=== PATIENT | male | born 1980 | race Caucasian/White ===

== ENCOUNTER → 2019-06-30 | Outpatient (CLI) | payer OTHER ==
[~2019-06-30] MED LIST: TOBRADEX 0.1%-0.5 ML OPH
[2019-06-30 17:31] LABS: BASO % 0.7 % (0.0-1.0); EOS # 0.2 10*3/uL (0.0-0.4); HEMATOCRIT 44.4 % (42.0-52.0); HEMOGLOBIN 14.5 g/dl (14.0-18.0); LYMPH # 2.2 10*3/uL (1.3-4.4); MEAN CELL VOLUME 92.5 fl (80.0-94.0); MEAN CORPUSCULAR HGB 30.2 pg (27.0-31.0); MEAN CORPUSCULAR HGB CONC 32.7 g/dl (33.0-37.0); MEAN PLATELET VOLUME 10.7 fl (9.6-12.3); MONO # 0.4 10*3/uL (0.1-1.0); MONO % 6.5 % (3.0-9.0); NEUT # 3.2 10*3/uL (2.3-7.9); NEUT % 52.6 % (47.0-73.0); PLATELET COUNT AUTOMATED 241 10*3/uL (130-400); RED CELL DISTRI WIDTH 12.4 % (0-14.5)
[2019-06-30 17:39] LABS: ALBUMIN 4.3 gm/dl (3.1-4.5); ALKALINE PHOSPHATASE 73 U/L (45-117); BUN 16 mg/dl (7-24); CHLORIDE 109 mmol/L (98-107); CHOLESTEROL 199 mg/dL (<200); CREATININE 1.21 mg/dL (0.70-1.30); FREE T4 0.75 ng/dl (0.76-1.46); HDL CHOLESTEROL 35 mg/dl (40-60); LDL CHOLESTEROL 87 mg/dL (9-159); POTASSIUM 3.8 mmol/L (3.5-5.1); SGOT/AST 13 IU/L (3-35); SGPT/ALT 24 U/L (12-78); SODIUM 139 mmol/L (136-145); TOTAL PROTEIN 7.3 gm/dL (6.4-8.2); TRIGLYCERIDES 387 mg/dl (<150); VLDL CHOLESTEROL 77 mg/dL (6-40)
[2019-06-30 17:45] LABS: VITAMIN D, 25-HYDROXY 17.1 ng/mL (30-100)
== END | disposition home or self-care (01) ==
LOC: LAB 16:43
PROVIDERS: Internal Medicine
DX: Z13.1 Encounter for screening for diabetes mellitus (principal); Z13.220 Encounter for screening for lipoid disorders; Z12.5 Encounter for screening for malignant neoplasm of prostate; Z13.21 Encounter for screening for nutritional disorder

== ENCOUNTER → 2019-07-24 | Outpatient (CLI) | payer OTHER | END | disposition home or self-care (01) | LOC: RAD 18:42 | DX: M25.562 Pain in left knee (principal); M25.561 Pain in right knee ==

== ENCOUNTER → 2019-11-15 | Outpatient (CLI) | payer OTHER | END | disposition home or self-care (01) | LOC: LAB 16:28 | DX: N40.1 Benign prostatic hyperplasia with lower urinary tract symptoms (principal) ==

== ENCOUNTER → 2024-03-15 | Outpatient (CLI) | payer OTHER | END | disposition home or self-care (01) | LOC: RAD 17:29 | PROVIDERS: ATTEND Nurse Practitioner Family | DX: M25.572 Pain in left ankle and joints of left foot (principal); M79.675 Pain in left toe(s) ==

== ENCOUNTER → 2024-05-25 | Outpatient (CLI) | payer OTHER ==
[2024-05-25 17:48] LABS: BASO # 0.1 10*3/uL (0.0-0.1); BASO % 0.7 % (0.0-1.0); EOS # 0.1 10*3/uL (0.0-0.4); EOS % 1.2 % (1.0-4.0); HEMATOCRIT 43.4 % (42.0-52.0); MEAN CELL VOLUME 91.4 fl (80.0-94.0); MEAN CORPUSCULAR HGB 29.7 pg (27.0-31.0); MEAN CORPUSCULAR HGB CONC 32.5 g/dl (33.0-37.0); MEAN PLATELET VOLUME 9.9 fl (9.6-12.3); MONO # 0.4 10*3/uL (0.1-1.0); MONO % 5.9 % (3.0-9.0); NEUT % 58.1 % (47.0-73.0); PLATELET COUNT AUTOMATED 276 10*3/uL (130-400); RED BLOOD COUNT 4.75 10*6/uL (4.50-5.90); RED CELL DISTRI WIDTH 12.5 % (0-14.5); WHITE BLOOD COUNT 6.9 10*3/uL (4.8-10.8)
[2024-05-25 18:14] LABS: ALKALINE PHOSPHATASE 72 U/L (46-116); BUN 19 mg/dl (9-23); CHLORIDE 103 mmol/L (98-107); CHOLESTEROL 216 mg/dL (<200); LDL CHOLESTEROL 126 mg/dL (9-159); SGPT/ALT 13 U/L (5-49); TRIGLYCERIDES 210 mg/dl (<150)
== END | disposition home or self-care (01) ==
LOC: LAB 17:27
PROVIDERS: ATTEND Nurse Practitioner Family
DX: Z00.01 Encounter for general adult medical examination with abnormal findings (principal); M79.644 Pain in right finger(s)

== ENCOUNTER → 2024-06-29 | Outpatient (CLI) | payer OTHER | END | disposition home or self-care (01) | LOC: US 17:00 | PROVIDERS: ATTEND Surgery | DX: D49.2 Neoplasm of unspecified behavior of bone, soft tissue, and skin (principal) ==

== ENCOUNTER → 2024-07-20 | Outpatient (CLI) | payer OTHER ==
[2024-07-20 18:21] LABS: URIC ACID 4.3 mg/dL (3.7-9.2)
== END | disposition home or self-care (01) ==
LOC: LAB 17:41
PROVIDERS: ATTEND Nurse Practitioner Family
DX: M10.9 Gout, unspecified (principal); M25.50 Pain in unspecified joint